=== PATIENT | female | born 1990 | race Caucasian/White ===

== ENCOUNTER 2017-10-24 20:56 | Observation (INO) | payer OTHER ==
--- NOTE | 2017-10-24 21:55 | EDPHY ---
H & P Stated Complaint: dog bite pt's dog shots up to date Time Seen by Provider: 10/24/17 21:49 HPI/ROS: CHIEF COMPLAINT: Dog bite HISTORY OF PRESENT ILLNESS: The patient is a 27-year-old female who comes to the emergency department after her dog bit her in the right elbow. She was trying to break up a fight. She has a puncture wound to the medial and lateral aspect of her elbow. This happened just prior to arrival. She has normal range of motion and sensation. She denies other injuries. REVIEW OF SYSTEMS: Constitutional: denies: chills, fever, recent illness, recent injury EENTM: denies: blurred vision, double vision, nose congestion Respiratory: denies: cough, shortness of breath Cardiac: denies: chest pain, irregular heart rate, lightheadedness, palpitations Gastrointestinal/Abdominal: denies: abdominal pain, diarrhea, nausea, vomiting, blood streaked stools Genitourinary: denies: dysuria, frequency, hematuria, pain Musculoskeletal: denies: joint pain, muscle pain Skin: See HPI Neurological: denies: headache, numbness, paresthesia, tingling, dizziness, weakness Hematologic/Lymphatic: denies: blood clots, easy bleeding, easy bruising Immunologic/allergic: denies: HIV/AIDS, transplant EXAM: GENERAL: Well-appearing, well-nourished and in no acute distress. HEAD: Atraumatic, normocephalic. EYES: Pupils equal round and reactive to light, extraocular movements intact, sclera anicteric, conjunctiva are normal. ENT: TMs normal, nares patent, oropharynx clear without exudates. Moist mucous membranes. NECK: Normal range of motion, supple without lymphadenopathy or JVD. LUNGS: Breath sounds clear to auscultation bilaterally and equal. No wheezes rales or rhonchi. HEART: Regular rate and rhythm without murmurs, rubs or gallops. ABDOMEN: Soft, nontender, normoactive bowel sounds. No guarding, no rebound. No masses appreciated. BACK: No CVA tenderness, no spinal tenderness, step-offs or deformities EXTREMITIES: Normal range of motion, no pitting or edema. No clubbing or cyanosis. NEUROLOGICAL: Cranial nerves II through XII grossly intact. Normal speech, normal gait. 5/5 strength, normal movement in all extremities, normal sensation PSYCH: Normal mood, normal affect. SKIN: The patient has a less than 1 cm puncture wound to the medial and another 1 to the lateral aspect of her elbow. She also has 2 pinpoint puncture wounds just above the lateral 1. No obvious foreign body. Source: Patient Exam Limitations: No limitations - Personal History LMP (Females 10-55): 1-7 Days Ago Current Tetanus/Diphtheria Vaccine: Yes Current Tetanus Diphtheria and Acellular Pertussis (TDAP): Yes - Medical/Surgical History Hx Asthma: No Hx Chronic Respiratory Disease: No Hx Diabetes: No Hx Cardiac Disease: No Hx Renal Disease: No Hx Cirrhosis: No Hx Alcoholism: No Hx HIV/AIDS: No Hx Splenectomy or Spleen Trauma: No Other PMH: denies - Family History Significant Family History: No pertinent family hx - Social History Smoking Status: Never smoked Alcohol Use: Sober Constitutional: Initial Vital Signs Temperature (C) 36.7 C 10/24/17 21:02 Heart Rate 90 10/24/17 21:02 Respiratory Rate 18 10/24/17 21:02 Blood Pressure 121/99 H 10/24/17 21:02 O2 Sat (%) 98 10/24/17 21:02 O2 Delivery Mode Room Air Allergies/Adverse Reactions: No Known Allergies Allergy (Unverified 10/24/17 21:04) Home Medications: Medication Instructions Recorded Amoxicillin/Clavulanate Pot 875 mg PO BID #14 tab 10/24/17 [Augmentin 875Mg] Citalopram [CeleXA 20 MG] 60 mg PO HS 10/24/17 traZODone [traZODONE 50MG (*)] 50 mg PO HS 10/24/17 Acetaminophen [Tylenol 325mg (*)] 650 mg PO Q4HRS PRN tab 10/25/17 Amoxicillin/Clavulanate Pot 875 mg PO BID tab 10/25/17 [Augmentin 875 MG TAB (*)] Cyanocobalamin [Vitamin B12 (*)] 1,000 mcg PO DAILY 10/25/17 Ertapenem [INVanz] 1 gm IV DAILY vial 10/25/17 Herbals/Supplements -Info Only 1 ea PO DAILY 10/25/17 [place]-3 Fatty Acids [Fish Oil 1000 1,000 mg PO DAILY 10/25/17 mg (*)] Medical Decision Making - Diagnostics Imaging: Discussed imaging studies w/ bingo caller Radiologist ED Course/Re-evaluation: The patient's wounds were numbed with bupivacaine and irrigated. Will obtain x- rays to evaluate for foreign body. Will leave this open and treat with antibiotics. 10:20 p.m. We discussed the x-ray results, no foreign bodies. Patient's wounds were irrigated. I will start her on Augmentin. She has normal function and range of motion. She declines further workup or treatment. She understands why were leaving her puncture wounds open. 10:[address] Henriquez feels that the patient may have an olecranon avulsion fracture. She is tender there. This does not really correlate with the location of the bite feliciano. I injected the patient's elbow with lidocaine and bicarbonate and fluid does seem to communicate with the lateral wound. Clear fluid leaks out of the wound while the joint spaces injected. I will page Orthopedics. 11:00 p.m. I discussed the case with Dr. Beck who will evaluate the films and come to see the patient. He suspects she will require washout in the OR. 12:[address] Beck is in the OR with another patient. We are awaiting consultation and possibly plan to take the operating room. Care transferred to Dr. Wilson Differential Diagnosis: Partial list of the Differential diagnosis considered include but were not limited to; dog bite, laceration, puncture wound, foreign body and although unlikely based on the history and physical exam, I also considered tendon injury , vascular injury, fracture. I discussed these differential diagnoses and the plan with the patient as well as the usual and expected course. The patient understands that the diagnosis is provisional and that in medicine we are not always correct and that further workup is often warranted. Usual and customary warnings were given. All of the patient's questions were answered. The patient was instructed to return to the emergency department should the symptoms at all worsen or return, otherwise to followup with the physician as we discussed. - Data Points Laboratory Results: Laboratory Results 10/24/17 23:35 10/24/17 23:35 Medications Given: Discontinued Medications Acetaminophen (Tylenol) 650 mg PO Q4HRS PRN PRN Reason: Pain, Mild/Fever, Can Take PO Stop: 04/23/18 01:06 Last Admin: 10/25/17 09:52 Dose: 650 mg Hydrocodone Bitart/Acetaminophen ([place] 5/325) 1 tab PO EDNOW ONE Stop: 10/24/17 22:54 Last Admin: 10/24/17 22:56 Dose: 1 tab Amoxicillin/Clavulanate Potassium (Augmentin 875mg) 875 mg PO EDNOW ONE PRN Reason: Protocol Stop: 10/24/17 22:29 Last Admin: 10/24/17 22:47 Dose: 875 mg Amoxicillin/Clavulanate Potassium (Augmentin 875mg) 875 mg PO BID DAVE PRN Reason: Protocol Stop: 11/24/17 08:59 Last Admin: 10/25/17 09:08 Dose: 875 mg Bacitracin (Bacitracin Ointment Tube) Confirm Administered Dose 14.2 lyndsay TP .STK -MED ONE Stop: 10/25/17 05:50 Last Admin: 10/25/17 05:50 Dose: 1 lyndsay Bupivacaine HCl (Sensorcaine 0.25% Sdv) Confirm Administered Dose 30 ml .ROUTE .STK-MED ONE Stop: 10/25/17 06:09 Last Admin: 10/25/17 06:16 Dose: Not Given Bupivacaine HCl/Epinephrine Bitart (Bupivacaine/Epi) Confirm Administered Dose 30 ml .ROUTE .STK-MED ONE Stop: 10/25/17 02:36 Last Admin: 10/25/17 05:51 Dose: Not Given Diphtheria/Tetanus/Acell Pertussis (Boostrix) 0.5 ml IM .ONCE ONE Stop: 10/25/17 11:54 Last Admin: 10/25/17 14:23 Dose: 0.5 ml Hydromorphone HCl (Dilaudid) 1 mg IVP EDNOW ONE Stop: 10/25/17 00:08 Last Admin: 10/25/17 00:10 Dose: 1 mg Hydromorphone HCl (Dilaudid) 0.2 - 0.4 mg IVP Q4HRS PRN PRN Reason: Pain, Severe Unable to Take PO Stop: 11/04/17 01:06 Last Admin: 10/25/17 01:20 Dose: 0.4 mg Hydromorphone HCl (Dilaudid) 2 mg PO Q4HRS PRN PRN Reason: Pain, Severe Able to Take PO Stop: 07/01/18 01:06 Last Admin: 10/25/17 02:22 Dose: 2 mg Hydromorphone/Sodium Chloride (Hydromorphone) 0.2 - 0.4 mg IVP Q4HRS PRN PRN Reason: Pain, Severe Unable to Take PO Stop: 11/04/17 01:06 Last Admin: 10/25/17 02:22 Dose: 0.4 mg Cefazolin Sodium/Dextrose (Ancef 1 Gm (Premix)) 50 mls @ 200 mls/hr IV EDNOW ONE PRN Reason: Protocol Stop: 10/24/17 23:25 Last Admin: 10/24/17 23:33 Dose: 50 mls Ertapenem 1 gm/ Sodium (Chloride) 100 mls @ 200 mls/hr IV DAILY DAVE PRN Reason: Protocol Stop: 11/24/17 11:59 Last Admin: 10/25/17 12:59 Dose: 100 mls Lidocaine HCl (Lidocaine Hcl 1%) Confirm Administered Dose 300 mg .ROUTE .STK- MED ONE Stop: 10/25/17 06:09 Last Admin: 10/25/17 06:16 Dose: Not Given Lorazepam (Ativan Injection) 1 mg IVP ONCE ONE Stop: 10/25/17 02:59 Last Admin: 10/25/17 03:15 Dose: 1 mg Departure - Departure Disposition: [facility] Clinical Impression: Dog bite of right elbow Qualifiers: Encounter type: initial encounter Qualified Code(s): S51.051A - Open bite, right elbow, initial encounter; W54.0XXA - Bitten by dog, initial encounter; W54.0XXA - Bitten by dog, initial encounter Puncture wound of right upper arm Qualifiers: Encounter type: initial encounter Qualified Code(s): S41.131A - Puncture wound without foreign body of right upper arm, initial encounter Condition: Good
[2017-10-24] MEDS ORDERED: AMOXICILLIN/CLAVULANATE POT 875/125 MG TAB PO ONE (22:28)
[2017-10-24] MEDS ORDERED: HYDROCODONE/APAP 5/325 TAB PO ONE (22:53)
[2017-10-25] MEDS ORDERED: HYDROmorphONE/DILAUDID 2 MG/ML INJ IVP ONE (00:07)
[2017-10-25] MEDS ORDERED: HYDROmorphONE/DILAUDID 1 MG/ML INJ ONE (00:08)
[2017-10-25] MEDS ORDERED: HYDROmorphONE/DILAUDID 1 MG/ML INJ IVP PRN (01:07)
[2017-10-25] MEDS ORDERED: ACETAMINOPHEN 325 MG TAB PO PRN (01:07)
[2017-10-25] MEDS ORDERED: ONDANSETRON 4 MG/2 ML VIAL IVP PRN (01:07)
[2017-10-25] MEDS ORDERED: HYDROmorphONE/DILAUDID 2 MG TAB PO PRN (01:07)
[2017-10-25] MEDS ORDERED: ONDANSETRON DISINTEGRATING 4 MG TAB PO PRN (01:07)
--- NOTE | 2017-10-25 01:13 | PDCONSULT ---
[facility] Note: Orthopaedic Consult DOS 10/25/2017 HPI: Called by ED (Mauro) to evaluate Ms. Mckoen in the ED. 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 She was trying to break up a dog fight between her Akita and another dog this afternoon but in the process her dog bit her right elbow hard and latched on. She had some bite wounds and came to the ED. Her Akita was adopted 3 months ago and was uptodate on shots, she says. After Xrays showed avulsion fragment off of olecranon, ED performed saline load test and saw fluid extravasation from a laceration. 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 Nonsmoker. 1-2 drinks per week ROS: otherwise healthy at baseline PE: AxOx3. RUE: posterolateral amd posteromedial small but deep lacerations from dog bite. PROM Right Elbow with minimal pain between 0-45 degrees. SILT A/R/U/M. 5/5 EPL/APB/FDS/FDP2,5/IO. 2+ radial pulse. moving fingers and wrist well. Mild edema of Right elbow. Some pain with supination and pronation. 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 - Will likely be in sling postop if no bony fixation f=n
[2017-10-25 01:21] LABS: PLATELET COUNT 237 10^3/uL (150-400)
--- NOTE | 2017-10-25 01:22 | PDGENHP ---
History and Physical - Chief Complaint Dog bite - History of Present Illness 27 yo F w/ no PMHx presents to ED after dog bite. She was attempting to break up a dog fight between her newly adopted dog and another animal. The dog bit her R elbow and latched on. The dog is up to date with its shots as it was adopted 3 months ago. Patient was evaluated by Dr. Beck who will take patient to OR for surgical washout. He is requesting hospitalist admission for ID consult noting complicated nature of the wound. At the time of my evaluation patient is complaining of R elbow pain but otherwise denies symptoms. History Information - Allergies/Home Medication List Allergies/Adverse Reactions: No Known Allergies Allergy (Unverified 10/24/17 21:04) Home Medications: celeXA 10 MG 10/24/17 [Last Taken Unknown] traZODone 10/24/17 [Last Taken Unknown] I have personally reviewed and updated: family history, medical history - Past Medical History no pertinent PMH - Surgical History Reports: no pertinent surgical hx - Family History Additional family history: Asked, denies - Social History Smoking Status: Never smoked Alcohol Use: Sober Review of Systems Review of Systems: ROS: 10pt was reviewed & negative except for what was stated in HPI & below Physical Exam Physical Exam: Temp Pulse Resp BP Pulse Ox 37.0 C 68 18 101/76 97 10/24/17 23:39 10/24/17 23:39 10/24/17 23:39 10/24/17 23:39 10/24/17 23:39 Constitutional: uncomfortable, other (Tearful) Eyes: PERRL, EOMI Ears, Nose, Mouth, Throat: moist mucous membranes, no oral mucosal ulcers Cardiovascular: regular rate and rhythym, no murmur, rub, or gallop Respiratory: no respiratory distress, clear to auscultation Gastrointestinal: normoactive bowel sounds, soft, non-tender abdomen Skin: warm, normal color Musculoskeletal: full muscle strength, no muscle tenderness Neurologic: AAOx3, CN II-XII Intact Psychiatric: interacting appropriately, other (Tearful) Lab Data & Imaging Review 10/24/17 23:35 10/24/17 23:35 Imaging Review: Imaging Impressions Elbow X-Ray 10/24/17 21:55 Impression: 1. Presumed avulsion fracture off of the posterior olecranon process seen best on the lateral view. 2. Joint effusion and soft tissue injury. Findings and recommendations discussed with Chris Wade M.D., at 10:36 p.m. on October 24, 2017. Final report concurs with initial preliminary interpretation. Assessment & Plan Assessment: 27 yo F presents w/ dog bite of R elbow. Plan: 1. Dog bite - Complicated by presumed avulsion fracture off of the posterior olecranon process. The dog was up to date with its shots. - To OR with Dr. Beck for washout - Augmentin PO BID x5 days for standard infectious prophylaxis noting depth of puncture wounds and proximity to joint - Will also place ID consultation upon orthopedic request to evaluate for additional management - Dilaudid PO/IV for pain control - Discussed case with Dr. Beck of orthopedic surgery Diet - NPO pending surgical intervention Code - Full Ppx - Low risk Dispo - Admit under observation status
[2017-10-25] MEDS ORDERED: HYDROmorphone HCL/NS 0.5 MG/ML SYR IVP PRN ×2 (02:30→02:59)
[2017-10-25] MEDS ORDERED: BUPIVACAINE/EPI 0.5% 30 ML SDV ONE (02:35)
[2017-10-25] MEDS ORDERED: LORazepam 2 MG/ML INJ IVP ONE (02:58)
[2017-10-25] MEDS ORDERED: CEFAZOLIN 2 GM/DEXTROSE/100 ML BAG IV ONE (04:34)
--- NOTE | 2017-10-25 04:39 | PDANEPAE ---
ANE History of Present Illness 27 yo female with R elbow wound from dog bite. ANE Past Medical History - Cardiovascular History Hx Hypertension: No Hx Arrhythmias: No Hx Chest Pain: No Hx Coronary Artery / Peripheral Vascular Disease: No Hx CHF / Valvular Disease: No Hx Palpitations: No - Pulmonary History Hx COPD: No Hx Asthma/Reactive Airway Disease: No Hx Recent Upper Respiratory Infection: No Hx Oxygen in Use at Home: No Hx Sleep Apnea: No Sleep Apnea Screening Result - Last Documented: Negative - Endocrine History Hx Diabetes: No Hypothyroid: No Hyperthyroid: No Obesity: no - Neurological & Psychiatric Hx Hx Neurological and Psychiatric Disorders: Yes Neurological / Psychiatric History Comment: anxiety - does not take benzos on a regular basis - Other Health History Other Health History: acne on accutane. insomnia treated with trazadone - Chronic Pain History Chronic Pain: No ANE Review of Systems Review of Systems: - Exercise capacity METS (RN): 4 METS - Systems Constitutional: Reports: no symptoms Cardiac: Reports: no symptoms ANE Patient History - Allergies Allergies/Adverse Reactions: No Known Allergies Allergy (Unverified 10/24/17 21:04) - Home Medications Home Medications: celeXA 10 MG 10/24/17 [Last Taken Unknown] traZODone 10/24/17 [Last Taken Unknown] - NPO status NPO Since - Liquids (Date): 10/24/17 NPO Since - Liquids (Time): 23:15 NPO Since - Solids (Date): 10/24/17 NPO Since - Solids (Time): 20:30 - Anes Hx Anes Hx: no prior problems - Smoking Hx Smoking Status: Never smoked Marijuana use: Yes - Alcohol Use Alcohol Use: Sober - Family Anes Hx Family Anes Hx: neg - N/A ANE Labs/Vital Signs - Labs Result Diagrams: 10/24/17 23:35 10/24/17 23:35 - Vital Signs Blood Pressure: 97/55 Heart Rate: 70 Respiratory Rate: 18 O2 Sat (%): 95 Height: 167.64 cm Weight: 63.503 kg ANE Physical Exam - Airway Neck exam: FROM Mallampati Score: Class 2 Mouth exam: normal dental/mouth exam - Pulmonary Pulmonary: clear to auscultation - Cardiovascular Cardiovascular: systolic murmur (II/ - pt notes she has not had a murmur in the past), other (split S2 versus third heart sound) - ASA Status ASA Status: II, E ANE Anesthesia Plan Anesthesia Plan: general endotracheal anesthesia
[2017-10-25] MEDS ORDERED: ROCURONIUM 50 MG/5 ML VIAL ONE (04:45)
[2017-10-25] MEDS ORDERED: DEXAMETHASONE 4 MG/ML VIAL ONE (04:45)
[2017-10-25] MEDS ORDERED: LIDOCAINE 2% 5 ML SDV ONE (04:45)
[2017-10-25] MEDS ORDERED: PROPOFOL/EMULSION 500 MG/50 ML BOTTLE IV ONE (04:46)
[2017-10-25] MEDS ORDERED: fentaNYL 100 MCG/2 ML INJ ONE ×2 (04:46)
[2017-10-25] MEDS ORDERED: ALBUTEROL 3 ML DEYVIAL IH PRN (05:44)
[2017-10-25] MEDS ORDERED: DIAZEPAM 5 MG/ML 1 ML SYR IVP PRN (05:44)
[2017-10-25] MEDS ORDERED: LR 500 ML IV PRN (05:44)
[2017-10-25] MEDS ORDERED: PROMETHAZINE HCL 25 MG/ML INJ IVP PRN (05:44)
[2017-10-25] MEDS ORDERED: NALOXONE HCL 0.4 MG/ML INJ IVP PRN (05:44)
[2017-10-25] MEDS ORDERED: fentaNYL 100 MCG/2 ML INJ IVP PRN (05:44)
[2017-10-25] MEDS ORDERED: KETOROLAC 30 MG/1 ML SDV ONE (05:48)
[2017-10-25] MEDS ORDERED: ONDANSETRON 4 MG/2 ML VIAL ONE (05:48)
[2017-10-25] MEDS ORDERED: BACITRACIN ZINC 14.2 GM OINTTUBE TP ONE (05:49)
[2017-10-25] MEDS ORDERED: LIDOCAINE 1% 300 MG/30 ML SDV ONE (06:08)
[2017-10-25] MEDS ORDERED: BUPIVACAINE 0.25% 30 ML SDV ONE (06:08)
--- NOTE | 2017-10-25 06:46 | POSTANESTH ---
Post Anesthetic Evaluation Cardiovascular Status: Normal, Stable Respiratory Status: Normal, Stable Level of Consciousness/Mental Status: Can Participate in Eval, Mildly Sleepy, Arousable Pain Control: Adequate, Prn Tx Ordered Nausea/Vomiting Control: Adequate, Prn Tx Ordered Complications Possibly Related to Anesthesia: None Noted
[2017-10-25] MEDS ORDERED: AMOXICILLIN/CLAVULANATE POT 875/125 MG TAB PO SCH (09:00)
--- NOTE | 2017-10-25 09:50 | ASMTCMCOM ---
CM Note CM Note Notes: Pt in for dog bite on elbow, had I&D. ID to consult. Pt on oral antibiotics. No therapies ordered. CM to follow. Date Signed: 10/25/2017 09:49 AM Electronically Signed By:CHANO Jimenez
[2017-10-25 11:26] VITALS: BP 93/52
[2017-10-25] MEDS ORDERED: TDAP ADULT 0.5 ML INJ (BOOSTRIX) IM ONE (11:53)
[2017-10-25] MEDS ORDERED: ERTAPENEM 1 GM in NS 100 ML IV SCH (12:00)
--- NOTE | 2017-10-25 12:39 | GCON ---
[f rep st] CONSULTATION INFECTIOUS DISEASE CONSULTATION DATE OF CONSULTATION: 10/25/2017 REFERRING PHYSICIAN: Jareth Moya MD REASON FOR CONSULTATION: Right elbow dog bite. HISTORY OF PRESENT ILLNESS: Patient is a 27-year-old female without significant past medical history whom I am asked to see in consultation regarding antibiotic recommendations after patient sustained a dog bite. Patient recently adopted a dog, which is up to date on its vaccinations, and she was [place] her dog in her apartment complex last evening when another dog and her dog began to fight. In t rying to separate the dogs, she sustained a bite from her dog to the right elbow. This occurred at a pproximately 9 p.m. She subsequently was seen in the emergency department and taken for an incision and drainage in the operating room this a.m. The patient, by x-ray, had sustained an avulsion fractu re off the posterior olecranon. Intraoperatively, the avulsed piece of bone was removed and sent for culture. The bite did penetrate into the joint space which was washed out. There were no other are as of bony penetration. Patient currently is receiving Augmentin based on her dog bite. She had elvia cribed having subjective fever briefly. She has not experienced nausea, vomiting or diarrhea. She d oes not know exactly when her last tetanus booster was performed. Given the above findings, I am now asked to assist in her ongoing management. PAST MEDICAL HISTORY: Anxiety. PAST SURGICAL HISTORY: Compartment release of both anterior shins, as above. CURRENT MEDICATIONS: Augmentin 875 p.o. b.i.d., Celexa 60 mg p.o. q.h.s., fish oil 1000 mg p.o. dotty y, trazodone 50 mg p.o. q.h.s., vitamin B-12 1000 mcg p.o. daily. ALLERGIES: No known drug allergies. SOCIAL HISTORY: Patient does not smoke. She drinks alcohol twice per week. She uses CBD oil. Rece ntly adopted dog as outlined above. FAMILY HISTORY: Noncontributory. REVIEW OF SYSTEMS: Outside that noted in the HPI, remainder of 10-system review is unremarkable. PHYSICAL EXAMINATION: VITAL SIGNS: Temperature 37.0, heart rate 78, respiratory rate 15, blood pres sure 93/52, oxygen saturation 96% on room air. GENERAL: Patient is well nourished, well developed, in no acute distress. She appears nontoxic. HEENT: There is no scleral icterus, conjunctival injec tion, conjunctival petechiae. Oropharynx shows moist mucous membranes with no thrush. No nasal disc harge. NECK: Supple without palpable lymphadenopathy or thyromegaly. CHEST: Clear to auscultation bilaterally without adventitious sounds. The respiratory effort is normal. CARDIOVASCULAR: Reveal s regular rate and rhythm without murmurs, gallops, rubs. ABDOMEN: Soft, nontender, nondistended. No palpable organomegaly. MUSCULOSKELETAL: The right upper extremity is dressed postoperatively. T he patient is able to move her fingers without difficulty. SKIN: No stigmata of endocarditis. Smal l abrasion over the left middle finger. Warm and dry to touch. NEUROLOGIC: Patient is alert. Inte racts appropriately with examiner. Cranial nerves 2-12 are grossly intact. Patient is able to move all digits of her hand on the right without difficulty. LYMPHATICS: No cervical or supraclavicular nodes. LABORATORY DATA: White blood cell count 9.9, hematocrit 39.7, platelets 237, neutrophils 62%, lympho cytes 29%. Serum creatinine 0.6. Gram stain from the avulsed piece of bone shows 1+ white blood kiran ls with no organisms, and cultures are pending. IMAGING: X-ray findings as outlined above which were reviewed by me today. IMPRESSION: Dog bite with penetration into elbow joint associated with avulsion fracture which has n ow been removed and joint has been washed out. Patient will be at risk for development of septic art hritis or osteomyelitis based on mechanism of injury. Microbiologic etiologies would include Staphyl ococcus aureus, Beta-hemolytic streptococci, and pathogens associated with dog oropharynx including p otential for pasteurella or capnocytophaga. We will proceed with 3 days of ertapenem followed by 7 d ays of Augmentin with goal of reducing risk of these complications from developing. Potential risk f or either entity will remain, although post washout and with antibiotic therapy should be of lower li kelihood. RECOMMENDATIONS: 1. Ertapenem 1 g IV daily x3 days. 2. Augmentin 875 mg orally b.i.d. x7 days after ertapenem completed. 3. Plan ertapenem on [address] [place] [id number] after receives dose here today. 4. Side effects of ertapenem, including potential for allergic reactions and Clostridium difficile c olitis, discussed with patient today. 5. We will arrange for followup in my office next week for ongoing assessment. 6. Patient advised regarding need to notify me for fever, chills, or right upper extremity symptoms postoperatively. 7. Tdap will be administered. Thank you for this consultation. We will continue to follow patient as an outpatient. /[id number]/MODL
--- NOTE | 2017-10-25 14:52 | ASMTLACE ---
VERITOE Length of stay for Answers: 1 day current admission Acuity / Level of Answers: No Care: Did the patient have an inpatient admission? # of Emergency department Answers: 1-2 visits in the last 6 months Social determinants Answers: Mental health diagnosis (anxiety, depression, pers onality disorders, etc.) Score: 5 Date Signed: 10/25/2017 02:52 PM Electronically Signed By:CHANO Jimenez
--- NOTE | 2017-10-25 15:24 | ASMTCMCOM ---
CM Note CM Note Notes: Pt medically stable for d/c, she will go to 3E outpatient infusion F 10/26/17 and Sa 10/27/17 for two more doses of ertapenem at 1300. Pt provided instructions for check in at [facility] tomorrow. Date Signed: 10/25/2017 03:23 PM Electronically Signed By:CHANO Jimenez
--- NOTE | 2017-10-25 15:51 | GDS ---
[f rep st] DISCHARGE SUMMARY DISCHARGE DIAGNOSES: 1. Dog bite. 2. Avulsion fracture. CONSULTATIONS: 1. Infectious Disease. 2. Orthopedics. STUDIES/PROCEDURES: Surgical debridement of the elbow. PHYSICAL EXAMINATION: GENERAL: The patient is alert. VITAL SIGNS: Afebrile at 37, pulse 78, respi ratory rate 16, blood pressure is 93/52. She is saturating 96% on room air. I have seen evaluated t he patient on the day of discharge. HOSPITAL COURSE: Patient is a 27-year-old female who presented to the emergency room after suffering a dog bite on her right elbow. She was evaluated by Infectious Disease, as well as Orthopedics duri ng this hospitalization. She had surgical intervention to assist with her avulsion fracture and wash out her elbow. She has been continued on IV ertapenem during this hospital course and will transiti on to Augmentin in 3 days. The plan is for her to continue IV ertapenem via [facility] f or 3 days and then to transition to oral Augmentin. She will follow in the outpatient setting with Kalpana Lora, as well as Dr. Beck of Orthopedics. PENDING STUDIES: Include cultures. DISCHARGE MEDICATIONS: Please refer to EMR form. The patient has been prescribed Augmentin, as well as her ertapenem. I have discussed the patient's disposition with Dr. Addison Lora, who is in agreemen t with this plan. Followup is noted in her chart for Dr. Lora, as well as Dr. Rojas and Dr. Beck. /[id number]/MODL
[2017-10-25] MEDS ORDERED: traZODone 50 MG TAB PO SCH (21:00)
[2017-10-25] MEDS ORDERED: CITALOPRAM 20 MG TAB PO SCH (21:00)
[2017-10-26] MEDS ORDERED: Herbals/Supplements -Info Only PO SCH (09:00)
[2017-10-26] MEDS ORDERED: OMEGA-3 FATTY ACIDS 1,000 MG CAP PO SCH (09:00)
[2017-10-26] MEDS ORDERED: CYANO/VITAMIN B12 1000 MCG TAB PO SCH (09:00)
--- NOTE | 2017-10-28 15:46 | POSTOPPROG ---
Post Op Note Date of Operation: 10/24/17 Surgeon: Franco Beck Anesthesia: GET(General Endotracheal) Pre-op Diagnosis: Right elbow dog bite, avulsion fracture Post-op Diagnosis: Right elbow dog bite, avulsion fracture, traumatic arthrotomy Procedure: I&D of Right dog bite wound and elbow joint, bone biopsy and cultures Inf/Abcess present in the surg proc area at time of surgery?: No EBL: Minimal
--- NOTE | 2017-10-28 16:03 | SUROPNOTE ---
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 The dog latched on and held tightly to her elbow. Procedural note: After reviewing consent, we proceeded to the OR. Anesthesia was induced. Right arm was prepped and draped in typical fashion. Timeout confirmed patient identity, surgical site, procedure, and antibiotic status. There were multiple small punctate teeth feliciano surrounding her elbow. most were not deep. However, there were two particularly deep teeth wounds - one located at the soft spot on the posterolateral aspect of the elbow. The other was on the fleshy portion of her medial forearm. We used a posterior approach to the elbow to allow for thorough examination of the deep tissues. The skin flaps were dissected medially to examine the ulnar nerve which was found to be intact. laterally, the soft spot wound tracked directly to the radiocapitallar joint of the elbow, establishing that the dog had violated the elbow source. The olecranon cortex was found to be disturbed by a 7mm diameter defect and avulsion along the posterior lateral border. The olecranon was still length stable and no complete transecting fracture found. No intraarticular extent of fracture found. The medial forearm tooth lesion was found to probe deeply into the skin and muscle and probed to the olecranon tip, but missed the ulnar nerve. No tooth fragments found. All the wounds were thoroughly irrigated with normal saline. The bone was sent for culture The edges of the deep dog tooth wounds were ellipsed out with a scalpel. The surgical incision was closed in layers, culminating in nylons at the skin. simple, loose interrupted sutures were used for the traumatic dog tooth wounds. A sterile dressing was applied and a long arm splint applied to protect the soft tissues. The count was correct The patient was brought back to PACU for further monitoring Specimen: Olecranon bone EBL: 25cc Drain: none COmplications: none
== END 2017-10-25 14:58 | disposition home or self-care (01) ==
LOC: F3N 10-25 01:56
PROVIDERS: ADMIT Student in an Organized Health Care Education/Training Program; ATTEND Student in an Organized Health Care Education/Training Program
PROC: 0R9L0ZZ Drainage of Right Elbow Joint, Open Approach (ICD-10-PCS; principal; 2017-10-25 04:30)
PROC: 0RCL0ZZ Extirpation of Matter from Right Elbow Joint, Open Approach (ICD-10-PCS; principal; 2017-10-25 04:30)
DX: S52.021B Displaced fracture of olecranon process without intraarticular extension of right ulna, initial encounter for open fracture type I or II (principal); M25.421 Effusion, right elbow; W54.0XXA Bitten by dog, initial encounter; Y93.K1 Activity, walking an animal; Y99.8 Other external cause status; F41.9 Anxiety disorder, unspecified; Z23 Encounter for immunization
CPT/HCPCS: 24000; 73070; 90471; G0378; A4565; J0690; J1100; J1170; J1335; J1885; J2060; J2405; J2704; J3010